=== PATIENT | female | born 1980 | race Two or more races ===

== ENCOUNTER 2022-06-06 07:43 | Emergency (ER) | payer MEDICAID, OTHER ==
[~2022-06-06] VITALS: Ht 154.9 cm; Wt 120.5 kg
[~2022-06-06 07:43] MED LIST: ARIP15TA27 PO; GABA-1181 PO; TRAZ-252 PO
[2022-06-06 07:54] VITALS: BP 149/78
[2022-06-06] MEDS ORDERED: QUET200T PO (08:02)
[2022-06-06] MEDS ORDERED: DIPH-1243 PO (08:02)
[2022-06-06] MEDS ORDERED: BUSP5TAB20 PO (08:02)
[2022-06-06 08:23] LABS: COVID AG,FIA SOURCE NASAL SWAB
[2022-06-06] MEDS ORDERED: IPRATROPIUM BROMIDE 0.5 MG/2.5 ML NEB SOLUTION NEB ONE (08:30)
[2022-06-06] MEDS ORDERED: ALBUTEROL SULFATE 2.5 MG/0.5 ML NEB SOLUTION NEB ONE (08:30)
[2022-06-06 08:51] LABS: INFLUENZA TYPE A NEGATIVE FOR TYPE A (NEGATIVE); INFLUENZA TYPE B NEGATIVE FOR TYPE B (NEGATIVE)
[2022-06-06] MEDS ORDERED: BENZ-227 PO (10:15)
[2022-06-06] MEDS ORDERED: AMOX250C4 PO (10:15)
[2022-06-06] MEDS ORDERED: ACETAMINOPHEN/CODEINE 300-30 MG TABLET PO ONE (10:30)
== END 2022-06-06 10:33 | disposition home or self-care (01) ==
LOC: EMS 07:47
DX: J06.9 Acute upper respiratory infection, unspecified (principal); J40 Bronchitis, not specified as acute or chronic; F41.9 Anxiety disorder, unspecified; F20.9 Schizophrenia, unspecified; F31.9 Bipolar disorder, unspecified; F11.90 Opioid use, unspecified, uncomplicated; Z98.890 Other specified postprocedural states; Z20.822 Contact with and (suspected) exposure to COVID-19
CPT/HCPCS: 71046; 87804; 94640; 99284; J7613